=== PATIENT | male | born 1955 | race Caucasian/White ===

== ENCOUNTER 2024-08-03 16:18 | Emergency (ER) | payer MEDICARE, MEDICAID ==
[~2024-08-03] VITALS: Ht 177.8 cm; Wt 95.8 kg
[~2024-08-03 16:18] MED LIST: TEST200V IM
[2024-08-03 16:31] VITALS: TEMP 97.6
[2024-08-03] MEDS: HYDROcodone/acetaminophen 10/325mg tab PO ONE (17:27)
[2024-08-03] MEDS: ketorolac trometh 15mg/ml vial 15 MG/ML ML IM ONE (17:28)
[2024-08-03 17:35] LABS: BASOPHILS % (AUTO) 0.6 % (0-1); EOSINOPHILS # (AUTO) 0.3 X10'3 (0-0.9); EOSINOPHILS % (AUTO) 3.6 % (0-6); HEMATOCRIT 41.4 % (42.0-52.0); HEMOGLOBIN 13.9 g/dl (14.0-17.9); LYMPHOCYTES # (AUTO) 1.4 X10'3 (1.1-4.8); LYMPHOCYTES % (AUTO) 19.2 % (21-51); MEAN CORPUSCULAR HEMOGLOBIN 29.8 PG (27.0-31.0); MEAN CORPUSCULAR HGB CONC 33.6 g/dL (33.0-36.5); MEAN CORPUSCULAR VOLUME 88.9 FL (78-98); MEAN PLATELET VOLUME 7.8 FL (7.4-10.4); MONOCYTES # (AUTO) 0.7 X10'3 (0-0.9); MONOCYTES % (AUTO) 9.1 % (2-12); NEUTROPHILS # (AUTO) 4.9 X10'3 (1.8-7.7); NEUTROPHILS % (AUTO) 67.5 % (42-75); PLATELET COUNT 230 X10'3 (140-440); RED BLOOD COUNT 4.66 X10'6 (4.70-6.10); RED CELL DISTRIBUTION WIDTH 15.3 % (11.5-14.5); WHITE BLOOD COUNT 7.3 X10'3 (4.5-11.0)
[2024-08-03 18:02] LABS: ALANINE AMINOTRANSFERASE 21 U/L (12-78); ALBUMIN 3.9 G/DL (3.4-5.0); ALBUMIN/GLOBULIN RATIO 1.1 (1.1-1.5); ALKALINE PHOSPHATASE 92 IU/L (46-116); ANION GAP 9 (8-16); ASPARTATE AMINO TRANSFERASE 22 U/L (10-37); BILIRUBIN,TOTAL 1.7 MG/DL (0.1-1.0); BLOOD UREA NITROGEN 5 MG/DL (7-18); CALCIUM 8.6 MG/DL (8.5-10.1); CHLORIDE 92 MMOL/L (99-107); CREATININE 0.71 MG/DL (0.60-1.10); GLUCOSE 91 MG/DL (70-104); LIPASE 19 U/L (16-77); POTASSIUM 3.7 MMOL/L (3.5-5.1); SODIUM 125 MMOL/L (135-145); TOTAL CARBON DIOXIDE 24.2 MMOL/L (24-32); TOTAL PROTEIN 7.3 G/DL (6.4-8.2); eCRCL 100 ML/MIN; eGFR > 90 ML/MIN
--- NOTE | 2024-08-03 18:04 | RADIOLOGY REPORT ---
Procedure: DI ABDOMEN,SINGLE VIEW([facility] Study Date and Requested Time: 08/03/2024 05:16 PM Technique: 2 views of the abdomen and pelvis available for evaluation. History: recent constipation Comparison: None Findings/ Impression: Nonspecific bowel gas pattern. No evidence of bowel obstruction or ileus. No significant fecal materi al within the colon. No abnormal calcifications noted. No evidence of acute bony abnormalities. Multilevel moderate degenerative changes of the lumbar spine . Phleboliths are noted within the pelvis. The visualized lung bases are clear.
[2024-08-03 18:54] LABS: BILIRUBIN,URINE NEGATIVE (Neg); CLARITY,URINE CLEAR (Clear); COLOR,URINE YELLOW (Yellow); GLUCOSE, URINE NEGATIVE (Neg); KETONES,URINE 15 mg/dl (Neg); LEUKOCYTE ESTERASE ,URINE NEGATIVE (Neg); NITRITES, URINE NEGATIVE (Neg); OCCULT BLOOD,URINE NEGATIVE (Neg); PH,URINE 7.5 (4.8-8.0); PROTEIN,URINE 30 mg/dl (Neg); UROBILINOGEN,URINE 0.2 E.U/dL (0.2-1.0)
[2024-08-03 19:07] LABS: UA COLLECTION TYPE CLN CATCH MIDSTREAM
[2024-08-03 19:11] LABS: BACTERIA,URINE NONE SEEN /HPF (Neg); MUCUS STRANDS FEW /LPF (Neg); RBC,URINE 0-2 /HPF (0-2); SQUAMOUS EPITHELIAL CELL,UR NONE SEEN /LPF (FEW); WBC,URINE NONE SEEN /HPF (0-4)
[2024-08-03 19:12] LABS: WAXY CASTS,URINE 0-3 /LPF (NEGATIVE)
--- NOTE | 2024-08-03 19:20 | RADIOLOGY REPORT ---
Clinical History abd pain back pain Comparison None Technique: All CT scans at this medical facility are performed using dose modulation techniques as appropriate t o a performed exam including the following: Automated exposure control was utilized; adjustment of th e mA and/or kV according to patient size; and use of iterative reconstruction technique. All CT studies are reported to the Dose Index Registry of the [employer]. Without Contrast Radiation Dose: CTDI (mGy): 30.60; DLP (mGy-cm): 1525.01 SPEEDY HERNANDEZ, [id number] FINDINGS: Lower chest: Minimal bibasilar dependent atelectasis Liver: Unremarkable Gallbladder: Unremarkable Pancreas: Diffuse pancreatic fatty infiltration and atrophy Spleen: Unremarkable Adrenals:Unremarkable Kidneys: Left renal cysts Stomach:Unremarkable Bowel:Evaluation of the bowel is limited and incomplete due to lack of oral contrast. The small jovan l is grossly unremarkable. Minimum diverticula of the left hemicolon. The large bowel is grossly un remarkable. Normal appendix Urinary bladder:Unremarkable Reproductive organs:No pelvic masses Peritoneum, retroperitoneum, lymphadenopathy:Unremarkable Vascular structures: Atherosclerotic calcification of abdominal vasculature Abdominal wall: Tiny left inguinal canal fat-containing hernia Musculoskeletal:No acute osseous abnormality. Degenerative changes of the imaged skeleton. Multilev el degenerative disc disease with facet arthropathy. Multilevel neuroforaminal narrowing predominant ly involving L4/L5 and L5/S1 right neuroforamina. No spinal canal stenosis IMPRESSION: No evidence of acute intra-abdominal abnormality. Multilevel degenerative disc disease with neuroforamina narrowing and facet arthropathy This report was electronically signed by Morena Lepe MD on 08/03/2024 7:18:04 PM.
[2024-08-03] MEDS: morphine 4 MG/ML inj SYRINge IM ONE (19:52)
--- NOTE | 2024-08-03 20:05 | Physician Documentation ---
History of Present Illness ~ Chief Complaint: Back Pain Stated Complaint: BACK PAIN Time Seen by MD: 16:57 Mode of Arrival: Ambulatory HPI 68-year-old male presents to the ED with a complaint of lumbar pain without injury. He states he has been evaluated in the outpatient setting in his supposed to have some sort of shot in his lumbar region to help with the pain and swelling. He denies any numbness tingling saddle or incontinence denies any recent injury as well. States that he has had diarrhea recently but that is resolved. Reports increased lumbar pain. Day of Onset: Aug 03, 2024 Medication Reconciliation Allergies: Coded Allergies: No Known Allergies (Unverified , 08/03/24) Scheduled Testosterone Cypionate (Depo-Testosterone), 800 MG IM Q7D, (Reported) Scheduled PRN Hydrocodone Bit/Acetaminophen 5/325 MG ([place] 5/325 MG), 1 TAB PO Q6H PRN for pain Review of Systems All Other Systems at this time: Reviewed and Negative ROS As stated above in the HPI, otherwise all systems are reviewed and negative. Physical Exam Physical Exam Vital Signs: Temperature: 97.6, Source: Temporal, Heart Rate: 56, Respiratory Rate: 16, BP: 177/72, Pulse Oximetry: 97, Weight: 95.850 Physical Exam General: Alert, no apparent distress. Respiratory: Lungs clear, no respiratory distress. Cardiovascular: Regular rate and rhythm, no murmurs. Back: Tender to the lumbosacral region negative ,CVA tenderness Neurologic: Oriented x4. Psychiatric: Normal mood and affect. Skin: Normal color, warm and dry. No edema, no ecchymosis. Progress Results/Orders Results/Orders Orders - MIK JEWELL [employer] Abdomen,Single View([facility]) (08/03/24 17:19) Ct Abdomen Pelvis (08/03/24 18:26) Completed Orders - MIK JEWELL [employer] Ketorolac Trometh 15mg/Ml Vial (Toradol (08/03/24 17:00) Hydrocodone/Apap 10/325 ([place] 10/325mg (08/03/24 17:00) Abdomen,Single View([facility]) (08/03/24 17:19) Cbc/Diff (08/03/24 17:10) BMP (08/03/24 17:10) Lipase (08/03/24 17:10) CMP (08/03/24 17:10) Ct Abdomen Pelvis (08/03/24 18:26) Ua W/Microscopic, Cult If Ind (08/03/24 18:33) Morphine 4mg/Ml Inj. (Morphine Inj.) (08/03/24 19:40) Diazepam Inj (Valium Inj) (08/03/24 19:50) Hydromorphone 1 Mg/Ml/Pf (Dilaudid Inj.) (08/03/24 19:50) Triamcinolone Acet 40mg/Ml Inj (Kenalog- (08/03/24 19:50) Medications Received in ER Medications (Trade) Dose Ordered Sig/Hanna Route PRN Reason Start Time Stop Time Status Last Admin Dose Admin (Toradol injection) 15 mg ONCE ONCE IM 08/03/24 17:00 08/03/24 17:01 DC 08/03/24 17:28 15 MG ([place] 10/325mg tab) 1 tab ONCE ONCE PO 08/03/24 17:00 08/03/24 17:01 DC 08/03/24 17:27 1 TAB (morphine inj.) 4 mg ONCE ONCE IM 08/03/24 19:40 08/03/24 19:48 DC 08/03/24 19:52 4 MG (Valium inj) 10 mg ONCE ONCE IV 08/03/24 19:50 08/03/24 19:58 DC 08/03/24 20:21 10 MG (Dilaudid inj.) 2 mg ONCE ONCE IV 08/03/24 19:50 08/03/24 20:00 DC 08/03/24 20:21 2 MG (Kenalog-40 inj) 40 mg ONCE ONCE IM 08/03/24 19:50 08/03/24 19:58 DC 08/03/24 20:21 40 MG Vital Signs 08/03/24 08/03/24 08/03/24 08/03/24 16:31 17:25 17:27 17:28 Temp 97.6 Pulse 70 63 Resp 18 22 22 22 B/P (MAP) 153/76 128/80 (96) Pulse Ox 97 98 08/03/24 08/03/24 08/03/24 08/03/24 17:54 17:54 18:47 19:52 Pulse 56 Resp 20 20 20 16 B/P (MAP) 177/72 (107) Pulse Ox 97 08/03/24 08/03/24 08/03/24 08/03/24 20:21 21:21 21:21 21:22 Pulse 64 Resp 18 16 16 18 B/P (MAP) 182/79 Pulse Ox 99 Laboratory Tests Test 08/03/24 17:20 08/03/24 18:33 White Blood Count 7.3 Red Blood Count 4.66 L Hemoglobin 13.9 L Hematocrit 41.4 L Mean Corpuscular Volume 88.9 Mean Corpuscular Hemoglobin 29.8 Mean Corpuscular Hemoglobin Concent 33.6 Red Cell Distribution Width 15.3 H Platelet Count 230 Mean Platelet Volume 7.8 Neutrophils (%) (Auto) 67.5 Lymphocytes (%) (Auto) 19.2 L Monocytes (%) (Auto) 9.1 Eosinophils (%) (Auto) 3.6 Basophils (%) (Auto) 0.6 Neutrophils # (Auto) 4.9 Lymphocytes # (Auto) 1.4 Monocytes # (Auto) 0.7 Eosinophils # (Auto) 0.3 Basophils # (Auto) 0.0 CBC Comment Sodium Level 125 L Potassium Level 3.7 Chloride Level 92 L Carbon Dioxide Level 24.2 Anion Gap 9 Blood Urea Nitrogen 5 L Creatinine 0.71 Estimated GFR/1.73 m2 > 90 BUN/Creatinine Ratio 7.0 L Glucose Level 91 Calcium Level 8.6 Total Bilirubin 1.7 H Aspartate Amino Transf (AST/SGOT) 22 Alanine Aminotransferase (ALT/SGPT) 21 Alkaline Phosphatase 92 Total Protein 7.3 Albumin 3.9 Globulin 3.4 Albumin/Globulin Ratio 1.1 Lipase 19 Chemistry Comments Urine Specimen Description Cln catch midstream Urine Color Yellow Urine Clarity Clear Urine pH 7.5 Urine Specific [place] 1.010 Urine Protein 30 H Urine Glucose (UA) Negative Urine Ketones 15 H Urine Occult Blood Negative Urine Nitrite Negative Urine Bilirubin Negative Urine Urobilinogen 0.2 Urine Leukocyte Esterase Negative Urine RBC 0-2 Urine WBC None seen Urine Squamous Epithelial Cells None seen Urine Bacteria None seen Urine Waxy Casts 0-3 Urine Mucus Few Urine Culture Indicated Not ind Volume Urine Centrifuged 10 ml Urine Comment Medical Decision Making Findings Initially I was not clear on a what or where the the patient's pain was specifically located. Via exam appears to be primarily located in the posterior aspect of his spine. He was unable to rule out kidney stones initially however CT scan indicates that he has severe disc degeneration. He has done his history he indicates that he has being treated for this in the outpatient setting.. I do not suspect cauda equina I do not suspect kidney stones or any other emergent etiologies at this time and does seem resistant to narcotic pain management indicating to me that he may have some opioid dependence. However I treated his pain effectively before discharging and I sent him some more pain management for an outpatient setting. An MRI would be ideal in his case however it is not currently available. Differential Dx:Considerations: Include: AAA, Aortic dissection, Appendicitis, Bowel obstruction, Cholelithiasis, Cholangitis, DJD, Fracture, Hepatitis, HNP, Musculoskeletal pain, Pancreatitis, Pyelonephritis, Renal infarction, Strain, Urinary obstruction, Urolithiasis, Urinary tract infection, Other Departure Disposition: 01 HOME / SELF CARE / HOMELESS Impression: Primary Impression: Low back pain Condition: Improved Discharge Instructions: Chronic Back Pain Referrals: NO PRIMARY CARE PROVIDER (PCP) Prescriptions Hydrocodone Bit/Acetaminophen 5/325 MG ([place] 5/325 MG) 5 Mg/325 Mg Tablet 1 TAB PO Q6H PRN for pain, #14 TAB Prov: MIK JEWELL NP 08/03/24 Education Educated: Patient Educated regarding: diagnosis Signature Scribe Signature: hector Attestation: The note accurately reflects work and decisions made by me.Mik Ford NP 08/03/24 23:28 MIK JEWELL NP Aug 03, 2024 20:05
[2024-08-03] MEDS ORDERED: HYDR-3965 PO (20:17)
[2024-08-03] MEDS: diazepam inj 5 MG/ML inj. IV ONE (20:21)
[2024-08-03] MEDS: triamcinolone acetonide 40mg/ml inj IM ONE (20:21)
[2024-08-03] MEDS: HYDROmorphone 1 mg/ml syringe IV ONE (20:21)
[2024-08-03 21:22] VITALS: BP 182/79; PULSE 64; RESP 18; O2SAT 99
== END 2024-08-03 21:24 | disposition home or self-care (01) ==
LOC: ER 16:18
DX: M54.50 Low back pain, unspecified (principal)
CPT/HCPCS: 36415; 74018; 74176; 80053; 81001; 83690; 85025; 96372; 96374; 96375; 99285; J1171; J1885; J2270; J3301; J3360

== ENCOUNTER 2024-11-30 08:18 | Outpatient (CLI) | payer MEDICARE, MEDICAID ==
--- NOTE | 2024-11-30 12:08 | RADIOLOGY REPORT ---
PROCEDURE: MRI lumbar spine without contrast. INDICATION: CAUDA EQUINA SYNDROME COMPARISON: None TECHNIQUE: MRI lumbar spine without intravenous contrast utilizing multiplanar, multisequence techni que. FINDINGS: The alignment of the lumbar spine vertebral bodies is preserved. The curvature is maintained. Modic e ndplate changes noted at L1-L2 and L2-3. No fracture or marrow replacing lesion. The vertebral body h eights are maintained. The intervertebral disc heights are maintained. Intervertebral disc diminishe d T2 signal intensity throughout the lumbar spine compatible with desiccation. The conus medullaris i s normal in signal characteristics and terminates at the T12-L1 level. Paraspinal muscles are unremar kable. At the T12-L1 level, there is no evidence of central spinal canal or neuroforaminal stenosis. At the L1-L2 level, there is broad-based posterior disc bulge and ligamentum flavum thickening. No s ignificant spinal stenosis. Moderate bilateral neural foraminal stenosis. At the L2-L3 level, there is broad-based posterior disc bulge. No significant spinal stenosis. Ahsan re left and moderate right neural foraminal stenosis due to ligamentum flavum thickening, disc bulge and facet hypertrophy. At the L3-L4 level, there is broad-based posterior disc bulge, ligamentum flavum thickening and facet hypertrophy with prominent posterior epidural fat. Mild spinal stenosis. Severe left and moderate t o severe right neural foraminal stenosis. At the L4-L5 level, there is broad-based posterior disc bulge, ligamentum flavum thickening and facet hypertrophy. Mild spinal stenosis. Severe narrowing of the lateral recesses. Severe left and ahsan re right neural foraminal stenosis with impingement of the bilateral exiting L4 nerve roots. At the L5-S1 level, there is broad-based posterior disc bulge and facet hypertrophy. No significant s sloane stenosis. Moderate to severe left and severe right neural foraminal stenosis. Impingement of the exiting right L5 nerve root. Other: Subcentimeter T2 hyperintensities in the bilateral kidneys compatible with cysts. IMPRESSION: 1. Multilevel lumbar spondylosis. Mild multilevel spinal stenosis. Severe left-sided neural foramina l stenosis at L3-L4 and severe bilateral neural foraminal stenosis at L4-L5 with impingement of the r espective exiting nerve roots. Severe right neural foraminal stenosis at L5-S1 with right L5 nerve r oot impingement.
== END 2024-11-30 23:59 | disposition home or self-care (01) ==
LOC: MRI02 08:18
PROVIDERS: ATTEND Nurse Practitioner Occupational Health
DX: M47.816 Spondylosis without myelopathy or radiculopathy, lumbar region (principal); G83.4 Cauda equina syndrome; M48.061 Spinal stenosis, lumbar region without neurogenic claudication
CPT/HCPCS: 72148